=== PATIENT | male | born 1985 | race Caucasian/White ===

== ENCOUNTER 2017-10-03 10:27 | Emergency (ER) | payer MEDICAID ==
[2017-10-03] MEDS ORDERED: IBUPROFEN 600 MG TABLET PO ONE (10:33)
[2017-10-03] MEDS ORDERED: HYDROCODONE/APAP 5/325MG TABLET PO ONE (10:33)
--- NOTE | 2017-10-03 10:39 | Emergency Department Record ---
History of Present Illness - General Chief complaint: Pain Stated complaint: R SHOULDER INJURY Time Seen by Provider: 10/03/17 10:33 Source: Patient Mode of Arrival: Ambulatory Limitations: No limitations - History of Present Illness Initial comments: 31 yo male presents with right shoulder pain. He reports he was going down steps and slipped. He was holding onto the handrail and stretched his shoulder in an extension motion. No other injuries. This morning he has pain with external rotation and abduction of the shoulder. He denies any shoulder history. NO numbness or tingling. MD Complaint: Joint pain -: Hour(s) Location: Right History of Same: No -: Yes Arthralgia, Yes Myalgia Radiation: Proximal Quality: Aching Consistency: Constant Improves with: Immobilization Worsens with: Exertion, Palpation, Weight bearing Associated Symptoms: Denies other symptoms - Related Data Home Medications Medication Instructions Recorded Confirmed Last Taken Bupropion HCl [Wellbutrin Sr] 150 mg PO DAILY 10/03/17 10/03/17 1 Day Ago ~10/02/17 Clonazepam [Klonopin] 1 mg PO TID 10/03/17 10/03/17 1 Day Ago ~10/02/17 Fludrocortisone Acetate [Florinef] 0.1 mg PO DAILY 10/03/17 10/03/17 1 Day Ago ~10/02/17 Previous Rx's Medication Instructions Recorded Naproxen [Naprosyn] 500 mg PO BID #20 tablet 10/03/17 Allergies Allergy/AdvReac Type Severity Reaction Status Date / Time No Known Drug Allergies Allergy Verified 10/03/17 10:36 Review of Systems Constitutional: Denies: Chills, Fever, Malaise, Weakness Eyes: Denies: Eye discharge ENT: Denies: Congestion Respiratory: Denies: Cough, Dyspnea, Hemoptysis, Wheezes Cardiovascular: Denies: Chest pain, Syncope Endocrine: Denies: Fatigue Gastrointestinal: Denies: Abdominal pain, Diarrhea, Nausea, Vomiting Genitourinary: Denies: Dysuria Musculoskeletal: Reports: As per HPI, Arthralgia, Myalgia. Denies: Back pain Skin: Denies: Bruising, Change in color, Rash Neurological: Denies: Headache, Numbness, Tingling, Tremors, Vertigo, Weakness Psychiatric: Denies: Anxiety Hematological/Lymphatic: Denies: Blood Clots, Easy bleeding, Easy bruising, Swollen glands Physical Exam - General General Appearance: Alert, Oriented x3, Cooperative, No acute distress Limitations: No limitations - Head Head exam: Atraumatic, Normocephalic, Normal inspection - Eye Eye exam: Normal appearance. negative: Conjunctival injection, Periorbital swelling - ENT ENT exam: Normal exam Ear exam: Normal external inspection Nasal Exam: Normal inspection Mouth exam: Normal external inspection - Neck Neck exam: Normal inspection - Respiratory Respiratory exam: Normal lung sounds bilaterally. negative: Respiratory distress - Cardiovascular Cardiovascular Exam: Regular rate, Normal rhythm, Normal heart sounds Peripheral Pulses: 2+: Radial (R) - Rectal Rectal exam: Deferred - exam: Deferred - Extremities Extremities exam: Normal inspection, Normal capillary refill, Tenderness. negative: Full ROM, Joint swelling Image of Full Body: 1 - normal inspection, pain with external rotation, no pain with internal rotation, pain with extension and flexion, pain with abduciton to 90 degrees. No AC tenderness. no swelling. - Back Back exam: Reports: Normal inspection. Denies: CVA tenderness (R), CVA tenderness (L) - Neurological Neurological exam: Alert, Oriented X3 - Psychiatric Psychiatric exam: Normal affect, Normal mood - Skin Skin exam: Dry, Intact, Normal color, Warm Course - Reevaluation(s) Reevaluation #1: The XR was reviewed No acute process noted, no fracture or dislocation DC home with supportive treatment with [facility] care 10/03/17 11:02 Disposition Disposition: Discharge Clinical Impression: Sprain of shoulder, right Qualifiers: Encounter type: initial encounter Shoulder sprain type: unspecified sprain Qualified Code(s): S43.401A - Unspecified sprain of right shoulder joint, initial encounter Disposition: Home, Self-Care Condition: (1) Good Instructions: Shoulder Sprain (ED) Additional Instructions: Ice every 4-6 hours to minimize swelling and inflammation of the shoulder Use the sling only for support and comfort. You may gently move the shoulder every 4 hours to prevent stiffness Call the [facility] for a new doctor If the shoulder continues to hurt more that a week you may need follow up tests or a referral to see a specialist Prescriptions: Naproxen [Naprosyn] 500 mg PO BID #20 tablet Forms: Patient Portal Access Time of Disposition: 10:42 Quality - Quality Measures Quality Measures: N/A - Blood Pressure Screening Does Patient Have Any of the Following: No Blood Pressure Classification: Normal BP Reading Systolic Measurement: 117 Diastolic Measurement: 68 Screening for High Blood Pressure: < Normal BP, F/U Not Required > [G8783]
--- NOTE | 2017-10-04 10:06 | RADIOLOGY REPORT ---
EXAM: RIGHT SHOULDER HISTORY: FELL DOWN STAIRS ONE DAY AGO. RIGHT ANTERIOR SHOULDER PAIN. TECHNIQUE: Three views of the right shoulder were obtained. Comparison: None. Encounter: Initial. FINDINGS: The bones and joints are normal in appearance. There is no visible acute fracture or dislocation. The acromioclavicular joint and subacromial space appear maintained. The ribs appear intact. IMPRESSION: NO ACUTE RIGHT SHOULDER PATHOLOGY. JOB NUMBER: [id number] MTDD
== END 2017-10-03 11:13 | disposition home or self-care (01) ==
LOC: ER 10:27
DX: S43.401A Unspecified sprain of right shoulder joint, initial encounter (principal); W10.9XXA Fall (on) (from) unspecified stairs and steps, initial encounter
CPT/HCPCS: 99283

== ENCOUNTER 2018-06-14 14:09 | Emergency (ER) | payer MEDICAID ==
[2018-06-14 15:03] LABS: HEMATOCRIT 42.7 % (42.0-52.0); HEMOGLOBIN 14.1 gm/dl (14.0-18.0); MEAN CELL VOLUME 93.4 fl (81-97); MEAN CORPUSCULAR HEMOGLOBIN 30.9 pg (27-33); MEAN PLATELET VOLUME 10.6 fl (7.4-10.4); PLATELET COUNT 324 K/uL (130-400); RED BLOOD COUNT 4.57 M/uL (4.40-5.70); WHITE BLOOD COUNT W/O DIFF 9.1 K/uL (4.2-12.2)
[2018-06-14 15:13] LABS: PLATELET ESTIMATE NORMAL (NORMAL)
[2018-06-14 15:14] LABS: BLOOD UREA NITROGEN 10 mg/dL (6-20); CREATININE 0.7 mg/dL (0.7-1.2); EST GLOMERULAR FILTRATION RATE > 60 mL/min; TOTAL PROTEIN 7.6 g/dL (6.6-8.7)
[2018-06-14 15:16] LABS: GLUCOSE,RANDOM 107 mg/dL (74-109)
[2018-06-14 15:19] LABS: ALB/GLOB RATIO 1.5 (1.1-1.8); ALBUMIN 4.5 g/dL (4.0-5.0); ALKALINE PHOSPHATASE 76 U/L (40-129); ALT/SGPT 53 U/L (<41); AST/SGOT 36 U/L (10.0-50.0)
[2018-06-14 15:24] LABS: URINE APPEARANCE CLEAR; URINE BILIRUBIN NEGATIVE (NEGATIVE); URINE BLOOD NEGATIVE (NEGATIVE); URINE COLOR YELLOW; URINE GLUCOSE (UA) NEGATIVE (NEGATIVE); URINE KETONE NEGATIVE (NEGATIVE); URINE LEUKOCYTE ESTERASE NEGATIVE (NEGATIVE); URINE NITRITE NEGATIVE (NEGATIVE); URINE PROTEIN NEGATIVE (NEGATIVE); URINE UROBILINOGEN 0.2 E.U./dL (0.20 - 1.00)
[2018-06-14 15:29] LABS: AMPHETAMINE SCREEN URINE NOT DETECTED; BARBITURATE SCREEN URINE NOT DETECTED; BENZODIAZEPINE SCREEN URINE NOT DETECTED; COCAINE SCREEN URINE NOT DETECTED; METHADONE SCREEN URINE NOT DETECTED; METHAMPHETAMINE SCREEN NOT DETECTED; OPIATE SCREEN URINE DETECTED; OXYCODONE SCREEN URINE NOT DETECTED; PHENCYCLIDINE SCREEN URINE NOT DETECTED; PROPOXYPHENE SCREEN URINE NOT DETECTED; THC SCREEN URINE NOT DETECTED; TRICYCLIC ANTIDEPRESSANT SCRN DETECTED
[2018-06-14 15:38] LABS: THYROID STIMULATING HORMONE 2.57 uIU/mL (0.270-4.20)
[2018-06-14] MEDS: 0.9 % SODIUM CHLORIDE 1,000 ML BAG IV ONE (16:07)
--- NOTE | 2018-06-14 16:44 | Emergency Department Record ---
History of Present Illness - General Chief Complaint: Seizures Stated Complaint: SEIZURE Time Seen by Provider: 06/14/18 14:25 Source: Patient Mode of Arrival: Wheelchair Limitations: No limitations - History of Present Illness Initial Comments: pt states he was at his grandpas dropping his daughter off he was not incontinentwhen he felt very weak and fell to the ground shaking and 'had a seizure' . he had a seizure a month ago as well the pt states. he also had a seizure 10 yrs ago. he is not on any meds. he remembers the event. MD Complaint: Possible seizure Onset/Timin -: Minutes(s) Witnessed: Yes - by bystander Trauma: No Seizure History: Known seizure disorder, Other Place: Home Associated Symptoms: Denies other symptoms Treatments Prior to Arrival: None - Avenue Coma Scale Eye Response: (4) Open spontaneously Motor Response: (6) Obeys commands Verbal Response: (5) Oriented Avenue Total: 15 - Related Data Home Medications Medication Instructions Recorded Confirmed Last Taken Hydrocortisone [Cortef] 10 mg PO BID 06/14/18 06/14/18 06/14/18 Allergies Allergy/AdvReac Type Severity Reaction Status Date / Time No Known Drug Allergies Allergy Verified 06/14/18 14:20 Travel Screening - Travel/Exposure Within Last 30 Days Have you traveled within the last 30 days?: No - Travel/Exposure Within Last Year Have you traveled outside the [place] in the last year?: No - Additonal Travel Details Have you been exposed to anyone with a communicable illness?: No - Travel Symptoms Symptom Screening: None Review of Systems Reviewed: No additional complaints except as noted below Constitutional: Reports: As per HPI. Denies: Chills, Fever, Malaise, Night sweats, Weakness, Weight change Eyes: Reports: As per HPI. Denies: Eye discharge, Eye pain, Photophobia, Vision change ENT: Reports: As per HPI. Denies: Congestion, Dental pain, Ear pain, Epistaxis , Hearing loss, Throat pain Respiratory: Reports: As per HPI. Denies: Cough, Dyspnea, Hemoptysis, Stridor, Wheezes Cardiovascular: Reports: As per HPI. Denies: Arrhythmia, Chest pain, Dyspnea on exertion, Edema, Murmurs, Orthopnea, Palpitations, Paroxysmal nocturnal dyspnea, Rheumatic Fever, Syncope Endocrine: Reports: As per HPI. Denies: Fatigue, Heat or cold intolerance, Polydipsia, Polyuria Gastrointestinal: Reports: As per HPI. Denies: Abdominal pain, Constipation, Diarrhea, Hematemesis, Hematochezia, Melena, Nausea, Vomiting Genitourinary: Reports: As per HPI. Denies: Dysuria, Frequency, Hematuria, Incontinence, Retention, Testicular pain, Testicular mass, Urgency Musculoskeletal: Reports: As per HPI. Denies: Arthralgia, Back pain, Gout, Joint swelling, Myalgia, Neck pain Skin: Reports: As per HPI. Denies: Bruising, Change in color, Change in hair/ nails, Lesions, Pruritus, Rash Neurological: Reports: As per HPI. Denies: Abnormal gait, Confusion, Headache, Numbness, Paresthesias, Seizure, Tingling, Tremors, Vertigo, Weakness Psychiatric: Reports: As per HPI. Denies: Anxiety, Auditory hallucinations, Depression, Homicidal thoughts, Suicidal thoughts, Visual hallucinations Hematological/Lymphatic: Reports: As per HPI. Denies: Anemia, Blood Clots, Easy bleeding, Easy bruising, Swollen glands Past Medical History - SOCIAL HISTORY Smoking Status: Former smoker Alcohol Use: None Drug Use: None - RESPIRATORY Hx Respiratory Disorders: No - CARDIOVASCULAR Hx Cardio Disorders: No - NEURO Hx Neuro Disorders: No - GI Hx GI Disorders: No - Hx Genitourinary Disorders: No - ENDOCRINE Hx Endocrine Disorders: Yes Comment:: adrenal insufficency - MUSCULOSKELETAL Hx Musculoskeletal Disorders: No - PSYCH Hx Psych Problems: No - HEMATOLOGY/ONCOLOGY Hx Hematology/Oncology Disorders: No Family Medical History Any Significant Family History?: No Physical Exam - General General Appearance: Alert, Oriented x3, Cooperative, Mild distress - Head Head exam: Normal inspection - Eye Eye exam: Normal appearance, PERRL, EOMI Pupils: Normal accommodation - ENT ENT exam: Normal exam, Mucous membranes moist, Normal external ear exam, Normal orophraynx Ear exam: Normal external inspection. negative: External canal tenderness Nasal Exam: Normal inspection. negative: Discharge, Sinus tenderness Mouth exam: Normal external inspection, Tongue normal Teeth exam: Normal inspection. negative: Dental caries Throat exam: Normal inspection. negative: Tonsillar erythema, Tonsillar exudate - Neck Neck exam: Normal inspection, Full ROM. negative: Tenderness - Respiratory Respiratory exam: Normal lung sounds bilaterally. negative: Respiratory distress - Cardiovascular Cardiovascular Exam: Regular rate, Normal rhythm, Normal heart sounds - GI/Abdominal GI/Abdominal exam: Soft, Normal bowel sounds. negative: Tenderness - Rectal Rectal exam: Deferred - exam: Deferred - Extremities Extremities exam: Normal inspection, Full ROM, Normal capillary refill. negative: Tenderness - Back Back exam: Reports: Normal inspection, Full ROM. Denies: Muscle spasm, Rash noted, Tenderness - Neurological Neurological exam: Alert, CN II-XII intact, Normal gait, Oriented X3, Other ( marked tremors in feet and hands) - Psychiatric Psychiatric exam: Normal affect, Normal mood - Skin Skin exam: Dry, Intact, Normal color, Warm Course Vital Signs 06/14/18 06/14/18 06/14/18 14:12 14:30 15:30 Temperature Pulse Rate 107 H Pulse Rate [ 109 H 97 H Pulse Ox Probe] Respiratory 18 16 16 Rate Blood Pressure 139/88 Blood Pressure 137/89 119/77 [Left Arm] Pulse Ox 98 96 96 06/14/18 16:10 Temperature 98.2 F Pulse Rate Pulse Rate [ 94 H Pulse Ox Probe] Respiratory 16 Rate Blood Pressure Blood Pressure 122/80 [Left Arm] Pulse Ox 96 - Reevaluation(s) Reevaluation #1: 06/14/18 16:45 pt feels better. it was d/w pt the need for a restriction of his driving until it is clarified if he has a seizure disorder. pt was upset about this and walked out but did come back. follow up with family was arranged. d/w dr keenan Medical Decision Making - Lab Data Result diagrams: 06/14/18 14:15 06/14/18 14:15 Lab Results 06/14/18 06/14/18 06/14/18 Range/Units 14:15 14:15 14:15 WBC 9.1 (4.2-12.2) K/uL RBC 4.57 (4.40-5.70) M/uL Hgb 14.1 (14.0-18.0) gm/dl Hct 42.7 (42.0-52.0) % MCV 93.4 (81-97) fl MCH 30.9 (27-33) pg MCHC 33.0 (32-36) g/dl RDW 13.0 (11.5-14.5) % Plt Count 324 (130-400) K/uL MPV 10.6 H (7.4-10.4) fl Neutrophils % 49.0 (47-80) % Eosinophils % Not Reportable Basophils % Not Reportable Lymphocytes 27.0 (16-45) % Monocytes 6.0 (0-9) % Platelet Estimate Normal (NORMAL) RBC Morphology Normal Eosinophil Count 18.0 H (0-6) % Sodium 142 (136-145) mmol/L Potassium 3.4 (3.4-4.5) mmol/L Chloride 100 (98-107) mmol/L Carbon Dioxide 33.0 H (22-29) mmol/L Anion Gap 9.0 (7-16) BUN 10 (6-20) mg/dL Creatinine 0.7 (0.7-1.2) mg/dL Estimated GFR > 60 mL/min Random Glucose 107 (74-109) mg/dL Calcium 9.2 (8.6-10.0) mg/dL Magnesium 1.7 (1.6-2.6) mg/dL Total Bilirubin 0.40 (0.2-1.0) mg/dL AST 36 (10.0-50.0) U/L ALT 53 H (<41) U/L Alkaline Phosphatase 76 (40-129) U/L Total Protein 7.6 (6.6-8.7) g/dL Albumin 4.5 (4.0-5.0) g/dL Globulin 3.1 (1.4-4.8) gm/dL Albumin/Globulin Ratio 1.5 (1.1-1.8) TSH 2.57 (0.270-4.20) uIU/mL Urine Color Urine Appearance Urine pH (5.0-8.0) Ur Specific [place] (1.002-1.030) Urine Protein (NEGATIVE) Urine Glucose (UA) (NEGATIVE) Urine Ketones (NEGATIVE) Urine Blood (NEGATIVE) Urine Nitrite (NEGATIVE) Urine Bilirubin (NEGATIVE) Urine Urobilinogen (0.20 - 1.00) E.U./dL Ur Leukocyte Esterase (NEGATIVE) Urine Opiates Screen Ur Oxycodone Screen Urine Methadone Screen Ur Propoxyphene Screen Ur Barbituates Screen Ur Tricyclics Screen Ur Phencyclidine Scrn Ur Amphetamine Screen U Methamphetamines Scrn U Benzodiazepines Scrn Urine Cocaine Screen Urine Cannabis Screen Ethyl Alcohol 0.010 (0-0.010) g/dL 06/14/18 06/14/18 Range/Units 15:19 15:19 WBC (4.2-12.2) K/uL RBC (4.40-5.70) M/uL Hgb (14.0-18.0) gm/dl Hct (42.0-52.0) % MCV (81-97) fl MCH (27-33) pg MCHC (32-36) g/dl RDW (11.5-14.5) % Plt Count (130-400) K/uL MPV (7.4-10.4) fl Neutrophils % (47-80) % Eosinophils % Basophils % Lymphocytes (16-45) % Monocytes (0-9) % Platelet Estimate (NORMAL) RBC Morphology Eosinophil Count (0-6) % Sodium (136-145) mmol/L Potassium (3.4-4.5) mmol/L Chloride (98-107) mmol/L Carbon Dioxide (22-29) mmol/L Anion Gap (7-16) BUN (6-20) mg/dL Creatinine (0.7-1.2) mg/dL Estimated GFR mL/min Random Glucose (74-109) mg/dL Calcium (8.6-10.0) mg/dL Magnesium (1.6-2.6) mg/dL Total Bilirubin (0.2-1.0) mg/dL AST (10.0-50.0) U/L ALT (<41) U/L Alkaline Phosphatase (40-129) U/L Total Protein (6.6-8.7) g/dL Albumin (4.0-5.0) g/dL Globulin (1.4-4.8) gm/dL Albumin/Globulin Ratio (1.1-1.8) TSH (0.270-4.20) uIU/mL Urine Color Yellow Urine Appearance Clear Urine pH 6.0 (5.0-8.0) Ur Specific [place] <= 1.005 (1.002-1.030) Urine Protein Negative (NEGATIVE) Urine Glucose (UA) Negative (NEGATIVE) Urine Ketones Negative (NEGATIVE) Urine Blood Negative (NEGATIVE) Urine Nitrite Negative (NEGATIVE) Urine Bilirubin Negative (NEGATIVE) Urine Urobilinogen 0.2 (0.20 - 1.00) E.U./dL Ur Leukocyte Esterase Negative (NEGATIVE) Urine Opiates Screen Detected Ur Oxycodone Screen Not detected Urine Methadone Screen Not detected Ur Propoxyphene Screen Not detected Ur Barbituates Screen Not detected Ur Tricyclics Screen Detected Ur Phencyclidine Scrn Not detected Ur Amphetamine Screen Not detected U Methamphetamines Scrn Not detected U Benzodiazepines Scrn Not detected Urine Cocaine Screen Not detected Urine Cannabis Screen Not detected Ethyl Alcohol (0-0.010) g/dL Disposition Disposition: Discharge Clinical Impression: Seizure Disposition: Home, Self-Care Condition: (1) Good Instructions: Recurrent Seizures in Adults (ED) Additional Instructions: follow up with dr sky and neurologist. no driving until cleared by doctor. no climbing or swimming alone. return sooner if worse Forms: Patient Portal Access, Return to Work/School Quality - Quality Measures Quality Measures: N/A - Blood Pressure Screening Does Patient Have Any of the Following: No Blood Pressure Classification: Pre-Hypertensive BP Reading Systolic Measurement: 139 Diastolic Measurement: 88 Screening for High Blood Pressure: < Pre-Hypertensive BP, F/U Documented > [ G8950] Pre-Hypertensive Follow-up Interventions: Follow-up with rescreen every year.
--- NOTE | 2018-06-16 11:01 | CT SCAN REPORT ---
EXAM: CT OF THE HEAD WITHOUT CONTRAST HISTORY: SEIZURE JUST PRIOR TO ARRIVAL. PATIENT WAS UNRESPONSIVE FOR FIFTEEN MINUTES. NO DEFINITE INJURY. PRIOR SEIZURE ONE MONTH AGO. TECHNIQUE: Routine noncontrast CT examination of the head was performed. Comparison: CT of the head without contrast from [facility] dated 04/19/18. FINDINGS: The ventricles and subarachnoid spaces remain normal in size. No new area of abnormally increased or decreased attenuation is noted throughout the brain substance. The lizama white interfaces appear distinct. Subtle lucency in the subcortical lateral left frontal lobe is stable and may represent a prominent perivascular space. Nonspecific gliosis is also possible. No abnormal extraaxial fluid collection is seen. No definite asymmetry of density of the middle cerebral arteries. Mild mucosal thickening within the maxillary sinuses, sphenoid sinuses, and multiple bilateral ethmoid air cells as well as inferior frontal sinuses consistent with chronic sinusitis. This has not grossly changed in the interval. The orbits as visualized are unremarkable. No skull fracture is seen. IMPRESSION: 1. NO CT EVIDENCE OF ACUTE MAJOR VESSEL INFARCT, INTRACRANIAL HEMORRHAGE, MASS OR SKULL FRACTURE. 2. SUBTLE SOMEWHAT LINEAR LUCENCY IN THE SUBCORTICAL LATERAL LEFT FRONTAL LOBE DOES NOT APPEAR SIGNIFICANTLY CHANGED IN THE INTERVAL. THIS MAY REPRESENT A PROMINENT PERIVASCULAR SPACE THOUGH NONSPECIFIC GLIOSIS IS ALSO POSSIBLE. 3. CHRONIC SINUSITIS THROUGHOUT THE MAJORITY OF THE PARANASAL SINUSES. JOB NUMBER: [id number] [facility]
== END 2018-06-14 17:00 | disposition home or self-care (01) ==
LOC: ER 14:09
DX: G40.909 Epilepsy, unspecified, not intractable, without status epilepticus (principal); E27.40 Unspecified adrenocortical insufficiency; Z87.891 Personal history of nicotine dependence
CPT/HCPCS: 99283 ×2; 83735; 80053; 81003; 84443; 80305; 85027; 70450; G0480; 80320; J7030

== ENCOUNTER 2018-07-03 17:10 | Emergency (ER) | payer MEDICAID ==
--- NOTE | 2018-07-03 17:21 | Emergency Department Record ---
History of Present Illness - General Chief Complaint: Dizziness Stated Complaint: DIZINESS,NAUSEA Source: Patient Mode of Arrival: Ambulatory Limitations: No limitations - History of Present Illness Initial Comments: 32 yo male presents dizziness and nausea since passing out at work, hitting his head, yesterday. He was at work for about 6 hours. He works in a hot factory setting. He stood up and passed out. He hit the back of his head. He was transported to [facility] ED for evaluation. He had a CT scan that was negative. He had christopher placed for a scalp laceration. Since then he has had dizziness and nausea. No vomiting. His headache is minimal. No confusion, vomiting, seizure, new injuries or symptoms. He was is his usually state of health prior to the injury at work yesterday. No amnesia. MD Complaint: Dizziness, Lightheadedness -: Days(s) (1) Timing: Awoke with symptoms (After hitting his head after syncope) Description: "Room spinning" History of Same: No History of Trauma: Yes Severity: Moderate Improves With: Remaining still, Rest, Other (He is comfortable if still. The symptoms occur with moving or turning the head) Worsens With: Movement Associated Symptoms: Loss of appetite - Ana Coma Scale Eye Response: (4) Open spontaneously Motor Response: (6) Obeys commands Verbal Response: (5) Oriented Wise Total: 15 - Related Data Home Medications Medication Instructions Recorded Confirmed Last Taken Gabapentin [Neurontin] 300 mg PO TID 07/03/18 07/03/18 07/03/18 Previous Rx's Medication Instructions Recorded Meclizine HCl [Antivert] 25 mg PO Q8H #20 tablet 07/03/18 Ondansetron [Zofran Odt] 4 mg PO Q8H #20 tab.rapdis 07/03/18 Allergies Allergy/AdvReac Type Severity Reaction Status Date / Time No Known Drug Allergies Allergy Verified 07/03/18 17:13 Review of Systems Constitutional: Reports: Malaise. Denies: Chills, Fever, Night sweats, Weakness Eyes: Denies: Eye discharge, Eye pain, Photophobia, Vision change ENT: Denies: Congestion, Ear pain, Throat pain Respiratory: Denies: Cough, Dyspnea, Hemoptysis, Wheezes Cardiovascular: Denies: Chest pain, Palpitations, Syncope Endocrine: Denies: Fatigue, Polydipsia, Polyuria Gastrointestinal: Reports: Nausea. Denies: Abdominal pain, Constipation, Diarrhea, Hematemesis, Hematochezia, Vomiting Genitourinary: Denies: Dysuria, Frequency, Hematuria Musculoskeletal: Denies: Arthralgia, Back pain, Joint swelling, Myalgia Skin: Denies: Bruising, Change in color, Rash Neurological: Reports: Headache, Vertigo. Denies: Abnormal gait, Confusion, Numbness, Paresthesias, Tingling, Tremors, Weakness Psychiatric: Denies: Anxiety Hematological/Lymphatic: Denies: Blood Clots, Easy bleeding, Easy bruising, Swollen glands Past Medical History - SOCIAL HISTORY Smoking Status: Former smoker Drug Use: None - RESPIRATORY Hx Respiratory Disorders: No - CARDIOVASCULAR Hx Cardio Disorders: No - NEURO Hx Neuro Disorders: No - GI Hx GI Disorders: No - Hx Genitourinary Disorders: No - ENDOCRINE Hx Endocrine Disorders: Yes Comment:: adrenal insufficency - MUSCULOSKELETAL Hx Musculoskeletal Disorders: No - PSYCH Hx Psych Problems: No - HEMATOLOGY/ONCOLOGY Hx Hematology/Oncology Disorders: No Physical Exam - General General Appearance: Alert ( ), Oriented x3, Cooperative, No acute distress, Other (Well appearing, clear speech, thoughts, conversational) Limitations: No limitations - Head Head exam: negative: Atraumatic Head exam detail: Laceration (right posterior scalp) - Eye Eye exam: Normal appearance, PERRL, EOMI. negative: Conjunctival injection, Nystagmus, Periorbital swelling, Periorbital tenderness, Scleral icterus Pupils: Normal accommodation - ENT ENT exam: Normal exam, Mucous membranes moist, Normal orophraynx Ear exam: Normal external inspection Nasal Exam: Normal inspection Mouth exam: Normal external inspection Teeth exam: Normal inspection Throat exam: Normal inspection. negative: Tonsillar erythema, Tonsillar exudate - Neck Neck exam: Normal inspection, Full ROM. negative: Tenderness - Respiratory Respiratory exam: Normal lung sounds bilaterally. negative: Respiratory distress - Cardiovascular Cardiovascular Exam: Regular rate, Normal rhythm, Normal heart sounds Peripheral Pulses: 2+: Radial (R), Radial (L) - GI/Abdominal GI/Abdominal exam: Soft. negative: Guarding, Rebound, Rigid, Tenderness - Rectal Rectal exam: Deferred - exam: Deferred - Extremities Extremities exam: Normal inspection, Full ROM, Normal capillary refill. negative: Calf tenderness, Joint swelling, Pedal edema, Tenderness - Back Back exam: Denies: CVA tenderness (R), CVA tenderness (L) - Neurological Neurological exam: Alert, CN II-XII intact, Normal gait (mild difficulty resolves once focused), Oriented X3, Reflexes normal, Other (Normal FTN, Normal JH, Normal tracking, no PND). negative: Altered, Motor sensory deficit - Psychiatric Psychiatric exam: Normal affect, Normal mood. negative: Agitated, Anxious - Skin Type of lesion: Laceration (Stapled, wound intact and clean) Course - Reevaluation(s) Reevaluation #1: The patient is well appearing no discomfort. He likely has some concussion symptoms from his injury. His CT scan yesterday was negative. The ED physician note was reviewed as well. We discussed possible concussion and plan for symptomatic treatment. 07/03/18 17:33 07/03/18 17:51 No acute changes on the CBC 07/03/18 18:30 The patient is doing much better. The nausea is well controlled. His spinning feeling is not gone but much better. We discussed concussions, home care the next 1-2 days and reasons to return to the ED. Medical Decision Making - Lab Data Result diagrams: 07/03/18 17:40 07/03/18 17:40 Disposition Disposition: Discharge Clinical Impression: Vertigo Concussion Qualifiers: Encounter type: initial encounter Loss of consciousness presence/duration: without LOC Qualified Code(s): S06.0X0A - Concussion without loss of consciousness, initial encounter Disposition: Home, Self-Care Condition: (1) Good Instructions: Vertigo (ED), Concussion (ED) Additional Instructions: Rest the next 2 days Avoid dehydration or over activity Avoid phone time and video games, avoid loud noises and bright lights Keep your home quiet without a lot of stimulation Off work tomorrow Prescriptions: Meclizine HCl [Antivert] 25 mg PO Q8H #20 tablet Ondansetron [Zofran Odt] 4 mg PO Q8H #20 tab.rapdis Forms: Patient Portal Access Time of Disposition: 18:34 Quality - Quality Measures Quality Measures: N/A, Blunt Head Trauma (>2yr) - Blunt Head Trauma - Adult Quality Measure: Measure #415: Utilization of CT for Minor Blunt Head Trauma ICD10 Codes Entered: Yes Was CT ordered: No Ana Score: Please complete Ana Coma Scale above Utilization of CT for Minor Blunt Head Trauma: Not Eligible For Measure Additional Inclusion Criteria: More than 24hrs (OR) GCS not 15 (OR) CT not ordered. Not Eligible Reason: CT Not Ordered - Blood Pressure Screening Does Patient Have Any of the Following: No Blood Pressure Classification: Pre-Hypertensive BP Reading Systolic Measurement: 131 Diastolic Measurement: 87 Screening for High Blood Pressure: < Pre-Hypertensive BP, F/U Documented > [ G8950] Pre-Hypertensive Follow-up Interventions: Referral to alternative/primary care provider.
[2018-07-03] MEDS ORDERED: ONDANSETRON HCL IV 4 MG/2 ML VIAL IVP ONE (17:25)
[2018-07-03] MEDS ORDERED: MECLIZINE 25 MG TABLET PO ONE ×2 (17:25→18:32)
[2018-07-03] MEDS ORDERED: 0.9 % SODIUM CHLORIDE 1,000 ML BAG IV ONE (17:25)
[2018-07-03 17:47] LABS: BASO % 0.8 % (0-6); EOS % 6.1 % (0-6); GRAN % 50.5 % (47-80); HEMATOCRIT 42.1 % (42.0-52.0); HEMOGLOBIN 14.1 gm/dl (14.0-18.0); LYMPH % 34.7 % (16-45); MEAN CELL VOLUME 93.3 fl (81-97); MEAN CORPUSCULAR HEMOGLOBIN 31.3 pg (27-33); MEAN CORPUSCULAR HGB CONC 33.5 g/dl (32-36); MEAN PLATELET VOLUME 10.2 fl (7.4-10.4); MONO % 7.9 % (0-9); PLATELET COUNT 287 K/uL (130-400); RED BLOOD COUNT 4.51 M/uL (4.40-5.70); RED CELL DISTRIBUTION WIDTH 12.7 % (11.5-14.5); WHITE BLOOD COUNT W/O DIFF 6.4 K/uL (4.2-12.2)
[2018-07-03 18:00] LABS: BLOOD UREA NITROGEN 8 mg/dL (6-20); CREATININE 0.7 mg/dL (0.7-1.2); EST GLOMERULAR FILTRATION RATE > 60 mL/min
[2018-07-03 18:03] LABS: GLUCOSE,RANDOM 70 mg/dL (74-109)
[2018-07-03] MEDS ORDERED: ONDANSETRON 4 MG ODT TABLET SL ONE (18:32)
== END 2018-07-03 18:48 | disposition home or self-care (01) ==
LOC: ER 17:10
DX: S06.0X0A Concussion without loss of consciousness, initial encounter (principal); R42 Dizziness and giddiness; R11.0 Nausea; R51 Headache; W18.39XA Other fall on same level, initial encounter; Y92.63 Factory as the place of occurrence of the external cause; Y99.0 Civilian activity done for income or pay; Z87.891 Personal history of nicotine dependence
CPT/HCPCS: 80048; 85025; 96361; 96374; 99284; J2405; J7030

== ENCOUNTER 2018-07-07 10:23 | Emergency (ER) | payer MEDICAID ==
[2018-07-07] MEDS ORDERED: METHYLPREDNISOLONE PF 125MG/VIAL IVP ONE (10:46)
[2018-07-07 11:03] LABS: BASO % 0.5 % (0-6); EOS % 3.7 % (0-6); HEMATOCRIT 43.7 % (42.0-52.0); HEMOGLOBIN 15.2 gm/dl (14.0-18.0); LYMPH % 29.8 % (16-45); MEAN CELL VOLUME 93.8 fl (81-97); MEAN CORPUSCULAR HEMOGLOBIN 32.6 pg (27-33); MEAN CORPUSCULAR HGB CONC 34.8 g/dl (32-36); MEAN PLATELET VOLUME 10.6 fl (7.4-10.4); PLATELET COUNT 330 K/uL (130-400); RED BLOOD COUNT 4.66 M/uL (4.40-5.70); RED CELL DISTRIBUTION WIDTH 13.1 % (11.5-14.5); WHITE BLOOD COUNT W/O DIFF 7.7 K/uL (4.2-12.2)
[2018-07-07 11:05] LABS: URINE APPEARANCE CLEAR; URINE BILIRUBIN NEGATIVE (NEGATIVE); URINE BLOOD NEGATIVE (NEGATIVE); URINE COLOR YELLOW; URINE GLUCOSE (UA) NEGATIVE (NEGATIVE); URINE KETONE NEGATIVE (NEGATIVE); URINE LEUKOCYTE ESTERASE NEGATIVE (NEGATIVE); URINE NITRITE NEGATIVE (NEGATIVE); URINE PROTEIN NEGATIVE (NEGATIVE); URINE UROBILINOGEN 0.2 E.U./dL (0.20 - 1.00)
[2018-07-07] MEDS ORDERED: 0.9 % SODIUM CHLORIDE 1,000 ML BAG IV ONE (11:07)
[2018-07-07 11:10] LABS: AMPHETAMINE SCREEN URINE NOT DETECTED; BARBITURATE SCREEN URINE NOT DETECTED; BENZODIAZEPINE SCREEN URINE DETECTED; COCAINE SCREEN URINE NOT DETECTED; METHADONE SCREEN URINE NOT DETECTED; METHAMPHETAMINE SCREEN NOT DETECTED; OPIATE SCREEN URINE NOT DETECTED; OXYCODONE SCREEN URINE NOT DETECTED; PHENCYCLIDINE SCREEN URINE NOT DETECTED; PROPOXYPHENE SCREEN URINE NOT DETECTED; THC SCREEN URINE NOT DETECTED; TRICYCLIC ANTIDEPRESSANT SCRN DETECTED
[2018-07-07 11:24] LABS: BLOOD UREA NITROGEN 18 mg/dL (6-20); CREATININE 0.8 mg/dL (0.7-1.2); EST GLOMERULAR FILTRATION RATE > 60 mL/min
[2018-07-07 11:25] LABS: TOTAL PROTEIN 8.1 g/dL (6.6-8.7)
[2018-07-07 11:27] LABS: GLUCOSE,RANDOM 83 mg/dL (74-109)
[2018-07-07 11:29] LABS: ALT/SGPT 70 U/L (<41)
[2018-07-07 11:30] LABS: ALB/GLOB RATIO 1.4 (1.1-1.8); ALBUMIN 4.7 g/dL (4.0-5.0); ALCOHOL 0.128 g/dL (0-0.010); ALKALINE PHOSPHATASE 70 U/L (40-129); AMMONIA 32 umol/L (16.0-60.0); AST/SGOT 38 U/L (10.0-50.0)
--- NOTE | 2018-07-07 11:53 | Emergency Department Record ---
History of Present Illness - General Chief Complaint: Altered Mental Status Stated Complaint: ALTERED MENTAL STATE Time Seen by Provider: 07/07/18 10:30 Source: Patient, EMS Mode of Arrival: EMS Limitations: Altered mental status - History of Present Illness Initial Comments: pt states he didnt feel like himself and he went to neighbors to get help. he got upset when they refused to help him and he threw tables over [they were having a garage sale] police and ems were called. pt denies having surgery but is having some difficulty with speech. pt admits to dinking alcohol last night. MD Complaint: Altered mental status, Intoxication Onset/Timin -: Hour(s) Context: Alcohol abuse, Seizure disorder, Unknown Associated Symptoms: Weakness - Ana Coma Scale Eye Response: (4) Open spontaneously Motor Response: (6) Obeys commands Verbal Response: (5) Oriented Ana Total: 15 - Symptoms of Stroke Symptoms of stroke: Slurred Speech - Related Data Allergies Allergy/AdvReac Type Severity Reaction Status Date / Time No Known Drug Allergies Allergy Verified 07/07/18 10:39 Travel Screening - Travel/Exposure Within Last 30 Days Have you traveled within the last 30 days?: No - Travel/Exposure Within Last Year Have you traveled outside the [place] in the last year?: No - Additonal Travel Details Have you been exposed to anyone with a communicable illness?: No - Travel Symptoms Symptom Screening: None Review of Systems Reviewed: No additional complaints except as noted below Constitutional: Reports: As per HPI. Denies: Chills, Fever, Malaise, Night sweats, Weakness, Weight change Eyes: Reports: As per HPI. Denies: Eye discharge, Eye pain, Photophobia, Vision change ENT: Reports: As per HPI. Denies: Congestion, Dental pain, Ear pain, Epistaxis , Hearing loss, Throat pain Respiratory: Reports: As per HPI. Denies: Cough, Dyspnea, Hemoptysis, Stridor, Wheezes Cardiovascular: Reports: As per HPI. Denies: Arrhythmia, Chest pain, Dyspnea on exertion, Edema, Murmurs, Orthopnea, Palpitations, Paroxysmal nocturnal dyspnea, Rheumatic Fever, Syncope Endocrine: Reports: As per HPI. Denies: Fatigue, Heat or cold intolerance, Polydipsia, Polyuria Gastrointestinal: Reports: As per HPI. Denies: Abdominal pain, Constipation, Diarrhea, Hematemesis, Hematochezia, Melena, Nausea, Vomiting Genitourinary: Reports: As per HPI. Denies: Dysuria, Frequency, Hematuria, Incontinence, Retention, Testicular pain, Testicular mass, Urgency Musculoskeletal: Reports: As per HPI. Denies: Arthralgia, Back pain, Gout, Joint swelling, Myalgia, Neck pain Skin: Reports: As per HPI. Denies: Bruising, Change in color, Change in hair/ nails, Lesions, Pruritus, Rash Neurological: Reports: As per HPI, Seizure. Denies: Abnormal gait, Confusion, Headache, Numbness, Paresthesias, Tingling, Tremors, Vertigo, Weakness Psychiatric: Reports: As per HPI. Denies: Anxiety, Auditory hallucinations, Depression, Homicidal thoughts, Suicidal thoughts, Visual hallucinations Hematological/Lymphatic: Reports: As per HPI. Denies: Anemia, Blood Clots, Easy bleeding, Easy bruising, Swollen glands Past Medical History - SOCIAL HISTORY Smoking Status: Former smoker Alcohol Use Comment: per pt, clean for 1 year, however drank 1 pint last night Drug Use: None - RESPIRATORY Hx Respiratory Disorders: No - CARDIOVASCULAR Hx Cardio Disorders: No - NEURO Hx Neuro Disorders: Yes Hx Seizures: Yes - GI Hx GI Disorders: No - Hx Genitourinary Disorders: No - ENDOCRINE Hx Endocrine Disorders: Yes Comment:: adrenal insufficency - MUSCULOSKELETAL Hx Musculoskeletal Disorders: No - PSYCH Hx Psych Problems: Yes Hx Anxiety: Yes - HEMATOLOGY/ONCOLOGY Hx Hematology/Oncology Disorders: No Family Medical History Any Significant Family History?: No Physical Exam - General General Appearance: Alert, Oriented x3, Cooperative, Mild distress - Head Head exam: Normal inspection - Eye Eye exam: Normal appearance, PERRL, EOMI Pupils: Normal accommodation - ENT ENT exam: Normal exam, Mucous membranes moist, Normal external ear exam, Normal orophraynx Ear exam: Normal external inspection. negative: External canal tenderness Nasal Exam: Normal inspection. negative: Discharge, Sinus tenderness Mouth exam: Normal external inspection, Tongue normal Teeth exam: Normal inspection. negative: Dental caries Throat exam: Normal inspection. negative: Tonsillar erythema, Tonsillar exudate - Neck Neck exam: Normal inspection, Full ROM. negative: Tenderness - Respiratory Respiratory exam: Normal lung sounds bilaterally. negative: Respiratory distress - Cardiovascular Cardiovascular Exam: Regular rate, Normal rhythm, Normal heart sounds - GI/Abdominal GI/Abdominal exam: Soft, Normal bowel sounds. negative: Tenderness - Rectal Rectal exam: Deferred - exam: Deferred - Extremities Extremities exam: Normal inspection, Full ROM, Normal capillary refill. negative: Tenderness - Back Back exam: Reports: Normal inspection, Full ROM. Denies: Muscle spasm, Rash noted, Tenderness - Neurological Neurological exam: Alert, CN II-XII intact, Normal gait, Oriented X3, Other ( mildly slurred speech) - Psychiatric Psychiatric exam: Normal affect, Normal mood - Skin Skin exam: Dry, Intact, Normal color, Warm Course Vital Signs 07/07/18 07/07/18 07/07/18 10:28 10:48 11:00 Temperature 98.8 F Pulse Rate [ 88 98 H 93 H Pulse Ox Probe] Respiratory 20 18 16 Rate Blood Pressure 95/66 107/63 112/77 [Left Arm] Pulse Ox 100 100 99 07/07/18 11:38 Temperature Pulse Rate [ 92 H Pulse Ox Probe] Respiratory 16 Rate Blood Pressure 114/71 [Left Arm] Pulse Ox 100 - Reevaluation(s) Reevaluation #1: 07/07/18 13:32 [facility] . he refused and was told he could not leave [facility] until he was sober. he tried to elope. police were called and pt has waited until sober. he refuses to stay for further work up and neurological evaluation. he has been warned pf the risks and benefits. he is leaving [facility] Reevaluation #2: 07/07/18 13:37 pt is alert and oriented x 3 Medical Decision Making - Lab Data Result diagrams: 07/07/18 10:12 07/07/18 10:12 Lab Results 07/07/18 07/07/18 07/07/18 Range/Units 10:12 10:12 10:45 WBC 7.7 (4.2-12.2) K/uL RBC 4.66 (4.40-5.70) M/uL Hgb 15.2 (14.0-18.0) gm/dl Hct 43.7 (42.0-52.0) % MCV 93.8 (81-97) fl MCH 32.6 (27-33) pg MCHC 34.8 (32-36) g/dl RDW 13.1 (11.5-14.5) % Plt Count 330 (130-400) K/uL MPV 10.6 H (7.4-10.4) fl Gran % 59.0 (47-80) % Lymphocytes % 29.8 (16-45) % Monocytes % 7.0 (0-9) % Eosinophils % 3.7 (0-6) % Basophils % 0.5 (0-6) % Sodium 142 (136-145) mmol/L Potassium 3.8 (3.4-4.5) mmol/L Chloride 100 (98-107) mmol/L Carbon Dioxide 28.0 (22-29) mmol/L Anion Gap 14.0 (7-16) BUN 18 (6-20) mg/dL Creatinine 0.8 (0.7-1.2) mg/dL Estimated GFR > 60 mL/min Random Glucose 83 (74-109) mg/dL Calcium 9.5 (8.6-10.0) mg/dL Total Bilirubin 0.40 (0.2-1.0) mg/dL AST 38 (10.0-50.0) U/L ALT 70 H (<41) U/L Alkaline Phosphatase 70 (40-129) U/L Ammonia 32 (16.0-60.0) umol/L Total Protein 8.1 (6.6-8.7) g/dL Albumin 4.7 (4.0-5.0) g/dL Globulin 3.4 (1.4-4.8) gm/dL Albumin/Globulin Ratio 1.4 (1.1-1.8) Urine Color Yellow Urine Appearance Clear Urine pH 6.0 (5.0-8.0) Ur Specific [place] 1.010 (1.002-1.030) Urine Protein Negative (NEGATIVE) Urine Glucose (UA) Negative (NEGATIVE) Urine Ketones Negative (NEGATIVE) Urine Blood Negative (NEGATIVE) Urine Nitrite Negative (NEGATIVE) Urine Bilirubin Negative (NEGATIVE) Urine Urobilinogen 0.2 (0.20 - 1.00) E.U./dL Ur Leukocyte Esterase Negative (NEGATIVE) Urine Opiates Screen Ur Oxycodone Screen Urine Methadone Screen Ur Propoxyphene Screen Ur Barbituates Screen Ur Tricyclics Screen Ur Phencyclidine Scrn Ur Amphetamine Screen U Methamphetamines Scrn U Benzodiazepines Scrn Urine Cocaine Screen Urine Cannabis Screen Ethyl Alcohol 0.128 H (0-0.010) g/dL 07/07/18 Range/Units 10:45 WBC (4.2-12.2) K/uL RBC (4.40-5.70) M/uL Hgb (14.0-18.0) gm/dl Hct (42.0-52.0) % MCV (81-97) fl MCH (27-33) pg MCHC (32-36) g/dl RDW (11.5-14.5) % Plt Count (130-400) K/uL MPV (7.4-10.4) fl Gran % (47-80) % Lymphocytes % (16-45) % Monocytes % (0-9) % Eosinophils % (0-6) % Basophils % (0-6) % Sodium (136-145) mmol/L Potassium (3.4-4.5) mmol/L Chloride (98-107) mmol/L Carbon Dioxide (22-29) mmol/L Anion Gap (7-16) BUN (6-20) mg/dL Creatinine (0.7-1.2) mg/dL Estimated GFR mL/min Random Glucose (74-109) mg/dL Calcium (8.6-10.0) mg/dL Total Bilirubin (0.2-1.0) mg/dL AST (10.0-50.0) U/L ALT (<41) U/L Alkaline Phosphatase (40-129) U/L Ammonia (16.0-60.0) umol/L Total Protein (6.6-8.7) g/dL Albumin (4.0-5.0) g/dL Globulin (1.4-4.8) gm/dL Albumin/Globulin Ratio (1.1-1.8) Urine Color Urine Appearance Urine pH (5.0-8.0) Ur Specific [place] (1.002-1.030) Urine Protein (NEGATIVE) Urine Glucose (UA) (NEGATIVE) Urine Ketones (NEGATIVE) Urine Blood (NEGATIVE) Urine Nitrite (NEGATIVE) Urine Bilirubin (NEGATIVE) Urine Urobilinogen (0.20 - 1.00) E.U./dL Ur Leukocyte Esterase (NEGATIVE) Urine Opiates Screen Not detected Ur Oxycodone Screen Not detected Urine Methadone Screen Not detected Ur Propoxyphene Screen Not detected Ur Barbituates Screen Not detected Ur Tricyclics Screen Detected Ur Phencyclidine Scrn Not detected Ur Amphetamine Screen Not detected U Methamphetamines Scrn Not detected U Benzodiazepines Scrn Detected Urine Cocaine Screen Not detected Urine Cannabis Screen Not detected Ethyl Alcohol (0-0.010) g/dL Disposition Disposition: Other Clinical Impression: Intoxication, Slurred speech, Confusion, Seizure Disposition: Against Medical Advice Condition: (2) Stable Instructions: Altered Mental Status (ED), Recurrent Seizures in Adults (ED) Additional Instructions: may return at any time. no driving Forms: Patient Portal Access Quality - Quality Measures Quality Measures: N/A - Blood Pressure Screening Does Patient Have Any of the Following: No Blood Pressure Classification: Normal BP Reading Systolic Measurement: 114 Diastolic Measurement: 71 Screening for High Blood Pressure: < Normal BP, F/U Not Required > [G8783]
--- NOTE | 2018-07-09 19:17 | CT SCAN REPORT ---
EXAM: CT SCAN HEAD WO CONTRAST HISTORY: FALL. TECHNIQUE: Sequential axial images were obtained from the foramen magnum to the vertex without contrast administration. FINDINGS: The brain volume is normal. No large territorial infarct, hemorrhage , mass effect, or midline shift. No extraaxial fluid collection. Orbits, paranasal sinuses, and mastoid air cells are normal. IMPRESSION: NO ACUTE INTRACRANIAL ABNORMALITY IS APPRECIATED. JOB NUMBER: [id number] [facility]
== END 2018-07-07 13:47 | disposition left against medical advice (07) ==
LOC: ER 10:23
DX: F10.129 Alcohol abuse with intoxication, unspecified (principal); Y90.3 Blood alcohol level of 60-79 mg/100 ml; R41.82 Altered mental status, unspecified; R41.0 Disorientation, unspecified; R53.1 Weakness; R47.81 Slurred speech; G40.909 Epilepsy, unspecified, not intractable, without status epilepticus; Z87.891 Personal history of nicotine dependence
CPT/HCPCS: 99284 ×2; 96374; 82140; 85025; 80053; 81003; 80305; 80164; 70450; 93005; 93010; G0480; 80320; J2930; J7030

== ENCOUNTER 2018-07-09 12:32 | Emergency (ER) | payer MEDICAID ==
[2018-07-09] MEDS ORDERED: METHYLPREDNISOLONE PF 125MG/VIAL IVP ONE (12:48)
[2018-07-09 12:53] LABS: BASO % 0.2 % (0-6); GRAN % 59.6 % (47-80); HEMATOCRIT 42.9 % (42.0-52.0); HEMOGLOBIN 14.5 gm/dl (14.0-18.0); LYMPH % 32.1 % (16-45); MEAN CELL VOLUME 92.5 fl (81-97); MEAN CORPUSCULAR HEMOGLOBIN 31.3 pg (27-33); MEAN CORPUSCULAR HGB CONC 33.8 g/dl (32-36); MEAN PLATELET VOLUME 9.8 fl (7.4-10.4); MONO % 7.1 % (0-9); PLATELET COUNT 354 K/uL (130-400); RED BLOOD COUNT 4.64 M/uL (4.40-5.70); WHITE BLOOD COUNT W/O DIFF 9.4 K/uL (4.2-12.2)
[2018-07-09] MEDS ORDERED: MVI, ADULT NO.4 WITH VIT K 10 ML, THIAMINE HCL IV 100 MG in 0.9 % SODIUM CHLORIDE 1000M... IV SCH ×3 (13:00)
[2018-07-09 13:02] LABS: BLOOD UREA NITROGEN 9 mg/dL (6-20); CREATININE 0.6 mg/dL (0.7-1.2); EST GLOMERULAR FILTRATION RATE > 60 mL/min
[2018-07-09 13:03] LABS: TOTAL PROTEIN 7.9 g/dL (6.6-8.7)
[2018-07-09 13:05] LABS: GLUCOSE,RANDOM 95 mg/dL (74-109)
[2018-07-09 13:07] LABS: ALT/SGPT 67 U/L (<41)
[2018-07-09 13:08] LABS: ALB/GLOB RATIO 1.3 (1.1-1.8); ALBUMIN 4.5 g/dL (4.0-5.0); ALKALINE PHOSPHATASE 80 U/L (40-129); AST/SGOT 35 U/L (10.0-50.0)
--- NOTE | 2018-07-09 13:10 | Emergency Department Record ---
History of Present Illness - General Source: Patient, Police, EMS Mode of Arrival: EMS Limitations: No limitations - History of Present Illness Initial Comments: pt was found unconcious in the road. he was given 4mg of narcan and woke up. pt has been here multiple times for similar situations. MD Complaint: Altered mental status, Decreased responsiveness -: Unknown Context: Alcohol abuse - [place] Coma Scale Eye Response: (4) Open spontaneously Motor Response: (6) Obeys commands Verbal Response: (4) Confused conversation Ana Total: 14 <Lani Nicole - Last Filed: 07/09/18 18:26> <Patrick Riggs - Last Filed: 07/09/18 21:58> - General Chief Complaint: Altered Mental Status Stated Complaint: ALTERED MENTAL STATE Time Seen by Provider: 07/09/18 12:36 - Related Data Allergies Allergy/AdvReac Type Severity Reaction Status Date / Time No Known Drug Allergies Allergy Verified 07/07/18 10:39 Travel Screening - Travel/Exposure Within Last 30 Days Have you traveled within the last 30 days?: No - Travel/Exposure Within Last Year Have you traveled outside the [place] in the last year?: No - Additonal Travel Details Have you been exposed to anyone with a communicable illness?: No - Travel Symptoms Symptom Screening: None <Lani Nicole - Last Filed: 07/09/18 18:26> Review of Systems Reviewed: No additional complaints except as noted below Constitutional: Reports: As per HPI. Denies: Chills, Fever, Malaise, Night sweats, Weakness, Weight change Eyes: Reports: As per HPI. Denies: Eye discharge, Eye pain, Photophobia, Vision change ENT: Reports: As per HPI. Denies: Congestion, Dental pain, Ear pain, Epistaxis , Hearing loss, Throat pain Respiratory: Reports: As per HPI. Denies: Cough, Dyspnea, Hemoptysis, Stridor, Wheezes Cardiovascular: Reports: As per HPI. Denies: Arrhythmia, Chest pain, Dyspnea on exertion, Edema, Murmurs, Orthopnea, Palpitations, Paroxysmal nocturnal dyspnea, Rheumatic Fever, Syncope Endocrine: Reports: As per HPI. Denies: Fatigue, Heat or cold intolerance, Polydipsia, Polyuria Gastrointestinal: Reports: As per HPI. Denies: Abdominal pain, Constipation, Diarrhea, Hematemesis, Hematochezia, Melena, Nausea, Vomiting Genitourinary: Reports: As per HPI. Denies: Dysuria, Frequency, Hematuria, Incontinence, Retention, Testicular pain, Testicular mass, Urgency Musculoskeletal: Reports: As per HPI. Denies: Arthralgia, Back pain, Gout, Joint swelling, Myalgia, Neck pain Skin: Reports: As per HPI. Denies: Bruising, Change in color, Change in hair/ nails, Lesions, Pruritus, Rash Neurological: Reports: As per HPI. Denies: Abnormal gait, Confusion, Headache, Numbness, Paresthesias, Seizure, Tingling, Tremors, Vertigo, Weakness Psychiatric: Reports: As per HPI, Anxiety, Depression, Homicidal thoughts, Suicidal thoughts. Denies: Auditory hallucinations, Visual hallucinations Hematological/Lymphatic: Reports: As per HPI. Denies: Anemia, Blood Clots, Easy bleeding, Easy bruising, Swollen glands <Lani Nicole - Last Filed: 07/09/18 18:26> Past Medical History - SOCIAL HISTORY Smoking Status: Former smoker Alcohol Use: Heavy - RESPIRATORY Hx Respiratory Disorders: No - CARDIOVASCULAR Hx Cardio Disorders: No - NEURO Hx Neuro Disorders: Yes Hx Seizures: Yes - GI Hx GI Disorders: No - Hx Genitourinary Disorders: No - ENDOCRINE Hx Endocrine Disorders: Yes Comment:: adrenal insufficency - MUSCULOSKELETAL Hx Musculoskeletal Disorders: No - PSYCH Hx Psych Problems: Yes Hx Anxiety: Yes - HEMATOLOGY/ONCOLOGY Hx Hematology/Oncology Disorders: No <Lani Nicole - Last Filed: 07/09/18 18:26> Family Medical History Any Significant Family History?: No <Lani Nicole - Last Filed: 07/09/18 18:26> Physical Exam - General General Appearance: Alert, Oriented x3, Mild distress - Head Head exam: Normal inspection - Eye Eye exam: Normal appearance, PERRL, EOMI Pupils: Normal accommodation - ENT ENT exam: Normal exam, Mucous membranes moist, Normal external ear exam, Normal orophraynx Ear exam: Normal external inspection. negative: External canal tenderness Nasal Exam: Normal inspection. negative: Discharge, Sinus tenderness Mouth exam: Normal external inspection, Tongue normal Teeth exam: Normal inspection. negative: Dental caries Throat exam: Normal inspection. negative: Tonsillar erythema, Tonsillar exudate - Neck Neck exam: Normal inspection, Full ROM. negative: Tenderness - Respiratory Respiratory exam: Normal lung sounds bilaterally. negative: Respiratory distress - Cardiovascular Cardiovascular Exam: Regular rate, Normal rhythm, Normal heart sounds - GI/Abdominal GI/Abdominal exam: Soft, Normal bowel sounds. negative: Tenderness - Rectal Rectal exam: Deferred - exam: Deferred - Extremities Extremities exam: Normal inspection, Full ROM, Normal capillary refill. negative: Tenderness - Back Back exam: Reports: Normal inspection, Full ROM. Denies: Muscle spasm, Rash noted, Tenderness - Neurological Neurological exam: Alert, Altered, CN II-XII intact - Psychiatric Psychiatric exam: Agitated - Skin Skin exam: Dry, Intact, Normal color, Warm <CoreyLani Steward - Last Filed: 07/09/18 18:26> Course Vital Signs 07/09/18 12:34 Temperature 98.7 F Pulse Rate 106 H Respiratory 20 Rate Blood Pressure 134/71 Pulse Ox 94 L - Reevaluation(s) Reevaluation #1: 07/09/18 16:45 pt has been combative, uncooperative and has required restraints Reevaluation #2: 07/09/18 16:47 pt had 2 pseudoseizures, prior to head ct Reevaluation #3: 07/09/18 18:26 pt still in restraints because he is uncooperative. his care is being turned over to dr riggs pending final disposition <Lani Nicole L - Last Filed: 07/09/18 18:26> Vital Signs 07/09/18 07/09/18 07/09/18 12:34 13:26 13:45 Temperature 98.7 F Pulse Rate 106 H Pulse Rate [ 116 H 119 H Pulse Ox Probe] Respiratory 20 20 16 Rate Blood Pressure 134/71 Blood Pressure 134/69 131/74 [Left Arm] Pulse Ox 94 L 98 98 07/09/18 07/09/18 07/09/18 14:00 14:15 14:30 Temperature Pulse Rate Pulse Rate [ 112 H 109 H 111 H Pulse Ox Probe] Respiratory 16 16 16 Rate Blood Pressure Blood Pressure 96/36 114/68 107/63 [Left Arm] Pulse Ox 98 97 98 07/09/18 07/09/18 07/09/18 15:00 15:15 15:30 Temperature Pulse Rate Pulse Rate [ 111 H 109 H 108 H Pulse Ox Probe] Respiratory 16 16 16 Rate Blood Pressure Blood Pressure 110/62 106/63 113/54 [Left Arm] Pulse Ox 99 99 98 07/09/18 07/09/18 07/09/18 15:45 16:00 16:15 Temperature Pulse Rate Pulse Rate [ 109 H 109 H 115 H Pulse Ox Probe] Respiratory 16 16 16 Rate Blood Pressure Blood Pressure 107/57 114/70 124/71 [Left Arm] Pulse Ox 100 99 99 07/09/18 07/09/18 07/09/18 16:30 16:45 17:00 Temperature Pulse Rate Pulse Rate [ 115 H 113 H 111 H Pulse Ox Probe] Respiratory 16 16 16 Rate Blood Pressure Blood Pressure 131/85 128/73 119/65 [Left Arm] Pulse Ox 99 99 99 07/09/18 07/09/18 07/09/18 17:15 17:30 17:45 Temperature Pulse Rate Pulse Rate [ 111 H 117 H 118 H Pulse Ox Probe] Respiratory 16 16 16 Rate Blood Pressure Blood Pressure 111/55 111/61 136/80 [Left Arm] Pulse Ox 98 99 07/09/18 18:15 Temperature Pulse Rate Pulse Rate [ 113 H Pulse Ox Probe] Respiratory 16 Rate Blood Pressure Blood Pressure 120/62 [Left Arm] Pulse Ox 98 - Reevaluation(s) Reevaluation #4: The patient's care was assumed from Dr. Nicole at 6:15 pm. The patient is on an Siddhartha and Cert due to suicidal ideation. Presently he is very stable and calm and cooperative. I did discuss the issues with [facility] and he is accepted for transfer. 07/09/18 20:08 <Patrick Riggs - Last Filed: 07/09/18 21:58> Medical Decision Making - Lab Data Result diagrams: 07/09/18 12:39 07/09/18 12:39 <Lani Nicole - Last Filed: 07/09/18 18:26> - Lab Data Result diagrams: 07/09/18 12:39 07/09/18 12:39 Lab Results 07/09/18 07/09/18 07/09/18 Range/Units 12:36 12:36 12:39 WBC 9.4 (4.2-12.2) K/uL RBC 4.64 (4.40-5.70) M/uL Hgb 14.5 (14.0-18.0) gm/dl Hct 42.9 (42.0-52.0) % MCV 92.5 (81-97) fl MCH 31.3 (27-33) pg MCHC 33.8 (32-36) g/dl RDW 13.0 (11.5-14.5) % Plt Count 354 (130-400) K/uL MPV 9.8 (7.4-10.4) fl Gran % 59.6 (47-80) % Lymphocytes % 32.1 (16-45) % Monocytes % 7.1 (0-9) % Eosinophils % 1.0 (0-6) % Basophils % 0.2 (0-6) % Sodium (136-145) mmol/L Potassium (3.4-4.5) mmol/L Chloride (98-107) mmol/L Carbon Dioxide (22-29) mmol/L Anion Gap (7-16) BUN (6-20) mg/dL Creatinine (0.7-1.2) mg/dL Estimated GFR mL/min Random Glucose (74-109) mg/dL Calcium (8.6-10.0) mg/dL Total Bilirubin (0.2-1.0) mg/dL AST (10.0-50.0) U/L ALT (<41) U/L Alkaline Phosphatase (40-129) U/L Total Protein (6.6-8.7) g/dL Albumin (4.0-5.0) g/dL Globulin (1.4-4.8) gm/dL Albumin/Globulin Ratio (1.1-1.8) Urine Color Yellow Urine Appearance Clear Urine pH 6.0 (5.0-8.0) Ur Specific Carn[place] <= 1.005 (1.002-1.030) Urine Protein Negative (NEGATIVE) Urine Glucose (UA) Negative (NEGATIVE) Urine Ketones Negative (NEGATIVE) Urine Blood Trace-i (NEGATIVE) Urine Nitrite Negative (NEGATIVE) Urine Bilirubin Negative (NEGATIVE) Urine Urobilinogen 0.2 (0.20 - 1.00) E.U./dL Ur Leukocyte Esterase Negative (NEGATIVE) Urine RBC 0 - 2 (NONE SEEN) Urine WBC 0 - 2 (0-2/hpf) Ur Epithelial Cells 0 - 2 (FEW) Salicylates (2.8-20) mg/dL Urine Opiates Screen Not detected Ur Oxycodone Screen Not detected Urine Methadone Screen Not detected Ur Propoxyphene Screen Not detected Acetaminophen (10.0-30.0) ug/mL Ur Barbituates Screen Not detected Ur Tricyclics Screen Not detected Ur Phencyclidine Scrn Not detected Ur Amphetamine Screen Not detected U Methamphetamines Scrn Not detected U Benzodiazepines Scrn Not detected Urine Cocaine Screen Not detected Urine Cannabis Screen Not detected Ethyl Alcohol (0-0.010) g/dL 07/09/18 07/09/18 07/09/18 Range/Units 12:39 18:25 18:25 WBC (4.2-12.2) K/uL RBC (4.40-5.70) M/uL Hgb (14.0-18.0) gm/dl Hct (42.0-52.0) % MCV (81-97) fl MCH (27-33) pg MCHC (32-36) g/dl RDW (11.5-14.5) % Plt Count (130-400) K/uL MPV (7.4-10.4) fl Gran % (47-80) % Lymphocytes % (16-45) % Monocytes % (0-9) % Eosinophils % (0-6) % Basophils % (0-6) % Sodium 143 (136-145) mmol/L Potassium 3.7 (3.4-4.5) mmol/L Chloride 100 (98-107) mmol/L Carbon Dioxide 28.0 (22-29) mmol/L Anion Gap 15.0 (7-16) BUN 9 (6-20) mg/dL Creatinine 0.6 L (0.7-1.2) mg/dL Estimated GFR > 60 mL/min Random Glucose 95 (74-109) mg/dL Calcium 9.1 (8.6-10.0) mg/dL Total Bilirubin 0.40 (0.2-1.0) mg/dL AST 35 (10.0-50.0) U/L ALT 67 H (<41) U/L Alkaline Phosphatase 80 (40-129) U/L Total Protein 7.9 (6.6-8.7) g/dL Albumin 4.5 (4.0-5.0) g/dL Globulin 3.4 (1.4-4.8) gm/dL Albumin/Globulin Ratio 1.3 (1.1-1.8) Urine Color Urine Appearance Urine pH (5.0-8.0) Ur Specific [place] (1.002-1.030) Urine Protein (NEGATIVE) Urine Glucose (UA) (NEGATIVE) Urine Ketones (NEGATIVE) Urine Blood (NEGATIVE) Urine Nitrite (NEGATIVE) Urine Bilirubin (NEGATIVE) Urine Urobilinogen (0.20 - 1.00) E.U./dL Ur Leukocyte Esterase (NEGATIVE) Urine RBC (NONE SEEN) Urine WBC (0-2/hpf) Ur Epithelial Cells (FEW) Salicylates < 0.3 L (2.8-20) mg/dL Urine Opiates Screen Ur Oxycodone Screen Urine Methadone Screen Ur Propoxyphene Screen Acetaminophen < 5.0 L (10.0-30.0) ug/mL Ur Barbituates Screen Ur Tricyclics Screen Ur Phencyclidine Scrn Ur Amphetamine Screen U Methamphetamines Scrn U Benzodiazepines Scrn Urine Cocaine Screen Urine Cannabis Screen Ethyl Alcohol 0.264 H 0.126 H (0-0.010) g/dL <Partick Riggs - Last Filed: 07/09/18 21:58> Disposition Disposition: Transfer <Lani Nicole - Last Filed: 07/09/18 18:26> Disposition: Transfer Transfer To: [facility] Reason For Transfer: Psych. Accepting Physician: Dr. Rivero Time Discussed w/Accepting Physician: 20:10 Time of Disposition: 20:10 <Patrick Riggs - Last Filed: 07/09/18 21:58> Clinical Impression: Alcohol abuse, Suicidal ideation Disposition: [facility] Forms: Patient Portal Access Quality - Quality Measures Quality Measures: Blunt Head Trauma (>2yr) - Blunt Head Trauma - Adult Quality Measure: Measure #415: Utilization of CT for Minor Blunt Head Trauma ICD10 Codes Entered: Yes Ana Score: Please complete [place] Coma Scale above - Blood Pressure Screening Does Patient Have Any of the Following: No Blood Pressure Classification: Pre-Hypertensive BP Reading Systolic Measurement: 134 Diastolic Measurement: 71 Screening for High Blood Pressure: < Pre-Hypertensive BP, F/U Documented > [ G8950] <Lani Nicole - Last Filed: 07/09/18 18:26> - Blood Pressure Screening View Details: Yes Does Patient Have Any of the Following: No Blood Pressure Classification: Pre-Hypertensive BP Reading Systolic Measurement: 134 Diastolic Measurement: 71 Screening for High Blood Pressure: < Pre-Hypertensive BP, F/U Documented > [ G8950] Pre-Hypertensive Follow-up Interventions: Referral to alternative/primary care provider. <Patrick Riggs - Last Filed: 07/09/18 21:58>
[2018-07-09 13:13] LABS: ACETAMINOPHEN < 5.0 ug/mL (10.0-30.0); ALCOHOL 0.264 g/dL (0-0.010)
[2018-07-09 13:55] LABS: URINE APPEARANCE CLEAR; URINE BILIRUBIN NEGATIVE (NEGATIVE); URINE BLOOD TRACE-I (NEGATIVE); URINE COLOR YELLOW; URINE GLUCOSE (UA) NEGATIVE (NEGATIVE); URINE KETONE NEGATIVE (NEGATIVE); URINE LEUKOCYTE ESTERASE NEGATIVE (NEGATIVE); URINE NITRITE NEGATIVE (NEGATIVE); URINE PROTEIN NEGATIVE (NEGATIVE); URINE UROBILINOGEN 0.2 E.U./dL (0.20 - 1.00)
[2018-07-09 14:00] LABS: AMPHETAMINE SCREEN URINE NOT DETECTED; BARBITURATE SCREEN URINE NOT DETECTED; BENZODIAZEPINE SCREEN URINE NOT DETECTED; COCAINE SCREEN URINE NOT DETECTED; METHADONE SCREEN URINE NOT DETECTED; METHAMPHETAMINE SCREEN NOT DETECTED; OPIATE SCREEN URINE NOT DETECTED; OXYCODONE SCREEN URINE NOT DETECTED; PHENCYCLIDINE SCREEN URINE NOT DETECTED; PROPOXYPHENE SCREEN URINE NOT DETECTED; THC SCREEN URINE NOT DETECTED; TRICYCLIC ANTIDEPRESSANT SCRN NOT DETECTED
[2018-07-09 14:07] LABS: URINE EPITHELIAL CELLS 0 - 2 (FEW); URINE RBC 0 - 2 (NONE SEEN); URINE WBC 0 - 2 (0-2/hpf)
[2018-07-09] MEDS ORDERED: OLANZAPINE 10 MG VIAL IM ONE ×2 (16:12→17:23)
--- NOTE | 2018-07-11 09:57 | CT SCAN REPORT ---
EXAM: CT OF THE BRAIN WITHOUT CONTRAST HISTORY: SYNCOPAL EPISODE. TECHNIQUE: Sequential axial images were obtained from the foramen magnum to the vertex without contrast administration. FINDINGS: The brain volume is normal. There is no large territorial infarct, hemorrhage, mass effect, or midline shift. There is no extraaxial fluid collection. The orbits, paranasal sinuses and mastoid air cells are normal. There are clips in the right posterior parietal soft tissues. IMPRESSION: NO ACUTE INTRACRANIAL ABNORMALITY IS APPRECIATED. JOB NUMBER: [id number] [facility]
--- NOTE | 2018-07-11 10:15 | CT SCAN REPORT ---
EXAM: CT OF THE CERVICAL SPINE WITHOUT CONTRAST HISTORY: SYNCOPE. TECHNIQUE: Sequential axial images were obtained through the cervical spine without intravenous contrast administration. Sagittal and coronal reformatted images were performed. FINDINGS: There is normal vertebral body height and alignment. No evidence of fracture, subluxation or perched facet. The lateral masses are well aligned. The prevertebral soft tissues are normal. The airway is patent. IMPRESSION: NEGATIVE CT EXAMINATION OF THE CERVICAL SPINE. JOB NUMBER: [id number] [facility]
== END 2018-07-09 22:02 ==
LOC: ER 12:32
DX: R45.851 Suicidal ideations (principal); R41.82 Altered mental status, unspecified; R55 Syncope and collapse; F44.5 Conversion disorder with seizures or convulsions; F10.129 Alcohol abuse with intoxication, unspecified; Y90.8 Blood alcohol level of 240 mg/100 ml or more; Z87.891 Personal history of nicotine dependence
CPT/HCPCS: 99285 ×2; 96372; 96365; 96375; 85025; 80053; 81001; 80305; 72125; 70450; G0480 ×3; 80320; 80329; J2930; J3411; J7030

== ENCOUNTER 2019-10-07 15:26 | Emergency (ER) | payer OTHER ==
[2019-10-07] MEDS ORDERED: 0.9 % SODIUM CHLORIDE 1,000 ML BAG IV ONE (16:39)
[2019-10-07 17:00] LABS: ABSOLUTE NEUTROPHIL COUNT 5.54; BASO % 0.3 % (0-6); EOS % 2.7 % (0-6); GRAN % 59.5 % (47-80); HEMATOCRIT 48.6 % (42.0-52.0); HEMOGLOBIN 17.2 gm/dl (14.0-18.0); LYMPH % 28.5 % (16-45); MEAN CELL VOLUME 88.7 fl (81-97); MEAN CORPUSCULAR HEMOGLOBIN 31.4 pg (27-33); MEAN CORPUSCULAR HGB CONC 35.4 g/dl (32-36); MEAN PLATELET VOLUME 10.2 fl (7.4-10.4); PLATELET COUNT 279 K/uL (130-400); RED BLOOD COUNT 5.48 M/uL (4.40-5.70); RED CELL DISTRIBUTION WIDTH 13.6 % (11.5-14.5); WHITE BLOOD COUNT W/O DIFF 9.3 K/uL (4.2-12.2)
[2019-10-07] MEDS ORDERED: ONDANSETRON HCL IV 4 MG/2 ML VIAL IVP ONE (17:12)
[2019-10-07 17:13] LABS: BLOOD UREA NITROGEN 7 mg/dL (6-20); CREATININE 0.7 mg/dL (0.7-1.2); EST GLOMERULAR FILTRATION RATE > 60 mL/min
[2019-10-07 17:14] LABS: TOTAL PROTEIN 8.9 g/dL (6.6-8.7)
[2019-10-07 17:16] LABS: GLUCOSE,RANDOM 112 mg/dL (74-109)
[2019-10-07 17:18] LABS: ALT/SGPT 577 U/L (<41)
[2019-10-07 17:19] LABS: ALB/GLOB RATIO 1.1 (1.1-1.8); ALBUMIN 4.7 g/dL (4.0-5.0); ALKALINE PHOSPHATASE 113 U/L (40-129); AST/SGOT 200 U/L (10.0-50.0)
--- NOTE | 2019-10-07 17:49 | Emergency Department Record ---
History of Present Illness - General Chief complaint: Nausea, Vomiting, Diarrhea Stated complaint: UNCONTROLABLE DIARRHEA Time Seen by Provider: 10/07/19 16:23 Source: Patient Mode of Arrival: Ambulatory Limitations: No limitations - History of Present Illness Initial comments: pt has diarrhea for 3 days. hes gone 6x in 24 hours.. he doesnt recall what he ate complaint: Diarrhea, Nausea Onset/Timin -: Days(s) Radiation: None Severity: Mild Quality: Constant Improves with: None Worsens with: None Associated Symptoms: Denies other symptoms - Related Data Allergies Allergy/AdvReac Type Severity Reaction Status Date / Time No Known Drug Allergies Allergy Verified 10/07/19 16:09 Travel Screening - Travel/Exposure Within Last 30 Days Have you traveled within the last 30 days?: No Review of Systems Reviewed: No additional complaints except as noted below Constitutional: Reports: As per HPI. Denies: Chills, Fever, Malaise, Night sweats, Weakness, Weight change Eyes: Reports: As per HPI. Denies: Eye discharge, Eye pain, Photophobia, Vision change ENT: Reports: As per HPI. Denies: Congestion, Dental pain, Ear pain, Epistaxis, Hearing loss, Throat pain Respiratory: Reports: As per HPI. Denies: Cough, Dyspnea, Hemoptysis, Stridor, Wheezes Cardiovascular: Reports: As per HPI. Denies: Arrhythmia, Chest pain, Dyspnea on exertion, Edema, Murmurs, Orthopnea, Palpitations, Paroxysmal nocturnal dyspnea, Rheumatic Fever, Syncope Endocrine: Reports: As per HPI. Denies: Fatigue, Heat or cold intolerance, Po lydipsia, Polyuria Gastrointestinal: Reports: As per HPI. Denies: Abdominal pain, Constipation, Diarrhea, Hematemesis, Hematochezia, Melena, Nausea, Vomiting Genitourinary: Reports: As per HPI. Denies: Dysuria, Frequency, Hematuria, Incontinence, Retention, Testicular pain, Testicular mass, Urgency Musculoskeletal: Reports: As per HPI. Denies: Arthralgia, Back pain, Gout, Joint swelling, Myalgia, Neck pain Skin: Reports: As per HPI. Denies: Bruising, Change in color, Change in hair/nails, Lesions, Pruritus, Rash Neurological: Reports: As per HPI. Denies: Abnormal gait, Confusion, Headache, Numbness, Paresthesias, Seizure, Tingling, Tremors, Vertigo, Weakness Psychiatric: Reports: As per HPI. Denies: Anxiety, Auditory hallucinations, D epression, Homicidal thoughts, Suicidal thoughts, Visual hallucinations Hematological/Lymphatic: Reports: As per HPI. Denies: Anemia, Blood Clots, Easy bleeding, Easy bruising, Swollen glands Past Medical History - SOCIAL HISTORY Smoking Status: Former smoker Alcohol Use: None Drug Use: None - RESPIRATORY Hx Respiratory Disorders: No - CARDIOVASCULAR Hx Cardio Disorders: No - NEURO Hx Neuro Disorders: Yes Hx Seizures: Yes - GI Hx GI Disorders: No - Hx Genitourinary Disorders: No - ENDOCRINE Hx Endocrine Disorders: Yes Comment:: adrenal insufficency - MUSCULOSKELETAL Hx Musculoskeletal Disorders: No - PSYCH Hx Psych Problems: Yes Hx Anxiety: Yes - HEMATOLOGY/ONCOLOGY Hx Hematology/Oncology Disorders: No Family Medical History Any Significant Family History?: No Physical Exam - General General Appearance: Alert, Oriented x3, Cooperative, Mild distress - Head Head exam: Normal inspection - Eye Eye exam: Normal appearance, PERRL, EOMI Pupils: Normal accommodation - ENT ENT exam: Normal exam, Mucous membranes moist, Normal external ear exam, Normal orophraynx Ear exam: Normal external inspection. negative: External canal tenderness Nasal Exam: Normal inspection. negative: Discharge, Sinus tenderness Mouth exam: Normal external inspection, Tongue normal Teeth exam: Normal inspection. negative: Dental caries Throat exam: Normal inspection. negative: Tonsillar erythema, Tonsillar exudate - Neck Neck exam: Normal inspection, Full ROM. negative: Tenderness - Respiratory Respiratory exam: Normal lung sounds bilaterally. negative: Respiratory distress - Cardiovascular Cardiovascular Exam: Normal rhythm, Normal heart sounds, Tachycardia - GI/Abdominal GI/Abdominal exam: Soft, Normal bowel sounds. negative: Tenderness - Rectal Rectal exam: Deferred - exam: Deferred - Extremities Extremities exam: Normal inspection, Full ROM, Normal capillary refill. n egative: Tenderness - Back Back exam: Reports: Normal inspection, Full ROM. Denies: Muscle spasm, Rash noted, Tenderness - Neurological Neurological exam: Alert, CN II-XII intact, Normal gait, Oriented X3 - Psychiatric Psychiatric exam: Normal affect, Normal mood - Skin Skin exam: Dry, Intact, Normal color, Warm Course Vital Signs 10/07/19 16:04 Temperature 98.4 F Pulse Rate 121 H Respiratory 20 Rate Blood Pressure 128/93 Pulse Ox 96 - Reevaluation(s) Reevaluation #1: 10/07/19 17:44 pt has not vomited while here Reevaluation #2: 10/07/19 17:50 pt wants to leave. he has been informed that this is against medical advice and ther are risks. he refuses to stay Medical Decision Making - Lab Data Result diagrams: 10/07/19 16:50 10/07/19 16:50 Lab Results 10/07/19 10/07/19 Range/Units 16:50 16:50 WBC 9.3 (4.2-12.2) K/uL RBC 5.48 (4.40-5.70) M/uL Hgb 17.2 (14.0-18.0) gm/dl Hct 48.6 (42.0-52.0) % MCV 88.7 (81-97) fl MCH 31.4 (27-33) pg MCHC 35.4 (32-36) g/dl RDW 13.6 (11.5-14.5) % Plt Count 279 (130-400) K/uL MPV 10.2 (7.4-10.4) fl Gran % 59.5 (47-80) % Lymphocytes % 28.5 (16-45) % Monocytes % 9.0 (0-9) % Eosinophils % 2.7 (0-6) % Basophils % 0.3 (0-6) % Absolute Neutrophils 5.54 Sodium 135 L (136-145) mmol/L Potassium 3.7 (3.4-4.5) mmol/L Chloride 95 L (98-107) mmol/L Carbon Dioxide 22.0 (22-29) mmol/L Anion Gap 18.0 H (7-16) BUN 7 (6-20) mg/dL Creatinine 0.7 (0.7-1.2) mg/dL Estimated GFR > 60 mL/min Random Glucose 112 H (74-109) mg/dL Calcium 9.7 (8.6-10.0) mg/dL Total Bilirubin 0.50 (0.2-1.0) mg/dL AST 200 H (10.0-50.0) U/L ALT 577 H (<41) U/L Alkaline Phosphatase 113 (40-129) U/L Total Protein 8.9 H (6.6-8.7) g/dL Albumin 4.7 (4.0-5.0) g/dL Globulin 4.2 (1.4-4.8) gm/dL Albumin/Globulin Ratio 1.1 (1.1-1.8) Disposition Disposition: Other Clinical Impression: Diarrhea Qualifiers: Diarrhea type: unspecified type Qualified Code(s): R19.7 - Diarrhea, unspecified Disposition: Against Medical Advice Condition: (2) Stable Instructions: Acute Diarrhea (ED) Additional Instructions: may return at any time Quality - Quality Measures Quality Measures: N/A - Blood Pressure Screening Does Patient Have Any of the Following: No Blood Pressure Classification: Hypertensive Reading Systolic Measurement: 128 Diastolic Measurement: 93 Screening for High Blood Pressure: < First Hypertensive BP, F/U Documented > [G8950] First Hypertensive Follow-up Interventions: Follow-up with rescreen GT 1 day and LT 4 weeks.
== END 2019-10-07 18:05 | disposition left against medical advice (07) ==
LOC: ER 15:26
DX: R19.7 Diarrhea, unspecified (principal); R00.0 Tachycardia, unspecified; R11.2 Nausea with vomiting, unspecified; Z87.891 Personal history of nicotine dependence; Z53.29 Procedure and treatment not carried out because of patient's decision for other reasons
CPT/HCPCS: 99284 ×2; 96374; 85025; 80053; 93005; 93010; J2405; J7030